=== PATIENT | female | born 1990 | race Caucasian/White ===

== ENCOUNTER 2017-04-11 17:21 | Emergency (ER) | payer OTHER ==
[~2017-04-11] VITALS: Ht 154.9 cm; Wt 81.6 kg
[~2017-04-11 17:21] MED LIST: METO50TA2 PO
--- NOTE | 2017-04-11 17:34 | NUR ---
Arrival: Pt ambulated to ED 4, placed on o2 and bp monitor. Assessment as charted. EDP notified of pt.
[2017-04-11] MEDS ORDERED: NORCO 5 MG PO STA (17:52)
--- NOTE | 2017-04-11 17:58 | ER.PDOC ---
General Chief Complaint: General Complaint Stated Complaint: GENEREAL COMPLAINT Time seen by MD: 17:57 Source: patient Exam Limitations: no limitations History of Present Illness Initial Comments Right lower quadrant pain Timing/Duration: 1-3 hours Severity/Quality: moderate Radiation: no radiation Associated Symptoms: denies symptoms Exacerbated by: nothing Relieved By: nothing Allergies: Coded Allergies: levofloxacin (Verified Allergy, Severe, Hives, 01/03/17) ciprofloxacin (Unverified Allergy, Unknown, 04/10/15) tramadol (Unverified Allergy, Unknown, 04/10/15) prochlorperazine (Verified Adverse Reaction, Intermediate, 01/03/17) SEIZURES aspirin (Verified Adverse Reaction, Unknown, Nausea, 04/11/17) clonazepam (Verified Adverse Reaction, Unknown, 04/11/17) Migraine codeine (Verified Adverse Reaction, Unknown, 01/03/17) doxepin (Verified Adverse Reaction, Unknown, 01/03/17) "ZOMBIED OUT" ketorolac (Verified Adverse Reaction, Unknown, 01/03/17) CAUSES UTI promethazine (Verified Adverse Reaction, Unknown, 04/11/17) Pt states the medication makes her feel like she will have a seizure Vital Signs First Vital Signs Date Time Temp Pulse Resp B/P (MAP) Pulse Ox O2 Delivery O2 Flow Rate FiO2 04/11/17 17:34 98.2 99 18 97 04/11/17 17:37 129/71 (90) Last Vital Signs Date Time Temp Pulse Resp B/P (MAP) Pulse Ox O2 Delivery O2 Flow Rate FiO2 04/11/17 17:37 98.2 99 18 129/71 (90) 97 Past Medical History Surgical History: cholecystectomy LMP (females 10-50): last week Social History Smoking: non-smoker Alcohol Use: none Drug Use: none Constitutional: no symptoms reported Respiratory: no symptoms reported Cardiovascular: no symptoms reported Gastrointestinal: see HPI Genitourinary: no symptoms reported Musculoskeletal: no symptoms reported Skin: no symptoms reported All Other Systems: Reviewed and Negative Physical Exam General Appearance: No Apparent Distress, WD/WN Neck: Non-Tender, Full Range of Motion, Supple, Normal Inspection Respiratory: chest non-tender, lungs clear, normal breath sounds, no respiratory distress, no accessory muscle use Cardiovascular: Normal Peripheral Pulses, Regular Rate, Rhythm, No Edema, No Gallop, No JVD, No Murmur Gastrointestinal: Normal Bowel Sounds, No Organomegaly, No Pulsatile Mass, Tenderness (RLQ) Back: Normal Inspection, No CVA Tenderness, No Vertebral Tenderness Extremities: Normal Range of Motion, Non-Tender, Normal Inspection, No Pedal Edema, No Calf Tenderness, Normal Capillary Refill, Pelvis Stable Neurologic/Psychiatric: sourcing assistant II-XII NML as Tested, No Motor/Sensory Deficits, Alert, Normal Mood/Affect, Oriented x 3 Skin: Normal Color, Warm/Dry EKG/XRAY/CT/US CT Comments: Normal appendix, no kidney stones Course Blood Pressure Systolic: 129 Blood Pressure Diastolic: 71 Blood Pressure Mean: 90 Departure Time of Disposition: 18:56 Disposition: 01 HOME, SELF-CARE Impression: Primary Impression: Nonspecific abdominal pain Condition: Stable Referrals: MOHAMUD ALMODOVAR MD (PCP) PRIMARY CARE PROVIDER Additional Instructions: Ibuprofen F/U with your PCP next week EDWIN PEREZ MD Apr 11, 2017 17:58
[2017-04-11 18:04] LABS: BASOPHIL % 0.4 % (0.0-0.2); EOSINOPHIL # 0.1 10^3/uL (0.0-0.2); EOSINOPHIL % 1.8 % (0.0-5.0); HEMOGLOBIN 9.6 g/dL (12.0-15.0); LYMPHOCYTES # 2.4 10^3/uL (1.0-4.8); LYMPHOCYTES % 30.6 % (24.0-44.0); MEAN CELL HGB 23.5 pg (26-34); MEAN PLATELET VOLUME 8.3 fL (7.8-11.0); MONOCYTES # 0.7 10^3/uL (0.3-0.8); MONOCYTES % 9.3 % (5.0-12.0); NEUTROPHIL # 4.6 10^3/uL (1.8-7.7); NEUTROPHILS % 57.8 % (41.0-85.0); RED CELL DISTRIBUTION WIDTH 14.8 % (11.5-14.5)
[2017-04-11 18:05] LABS: BILIRUBIN,URINE NEGATIVE (NEGATIVE); UROBILINOGEN,URINE NORMAL (NEGATIVE)
[2017-04-11 18:08] LABS: APPEARANCE,URINE CLEAR (CLEAR); UA COLOR YELLOW (YELLOW)
[2017-04-11 18:21] LABS: CALCIUM 8.8 mg/dL (8.4-10.5); CARBON DIOXIDE 25.4 mmol/L (20.0-32)
[2017-04-11] MEDS ORDERED: NORCO 5 MG PO ONE (18:23)
--- NOTE | 2017-04-11 18:36 | DIREP ---
PROCEDURE:CT ABDOMEN/PELVIS W/O CONTRAST COMPARISON:ER On [facility], CT, CT ABD/PELVIS W/ CONTRAST, 09/28/2016, 07:33 PM. INDICATIONS:Right lower quadrant pain TECHNIQUE:Axial images were created through the abdomen and pelvis without intravenous contrast material. No oral contrast was administered. Sagittal and coronal reconstructions were performed from source images. FINDINGS: LUNG BASES:Normal. No visible pulmonary or pleural disease. LIVER:Normal. No significant liver lesions are identified. BILIARY:The gallbladder is surgically absent. There is no biliary ductal dilatation. PANCREAS:Normal. No lesion, fluid collection, ductal dilatation, or atrophy. SPLEEN:Normal. No enlargement or focal lesion. ADRENALS:Normal. No mass or enlargement. URINARY TRACT:Normal. No focal lesions or hydronephrosis. AORTA/VASCULAR:Normal. No aneurysm. RETROPERITONEUM:Normal. No mass or adenopathy. BOWEL/MESENTERY:The appendix is visualized and appears normal. There is no intestinal obstruction, free fluid, free air or mesenteric inflammatory changes. ABDOMINAL WALL:Normal. No mass or hernia. PELVIC ORGANS:Normal. No visible mass. Pelvic organs appropriate for patient age. BONES:Normal for age. No bony lesion or acute fracture. OTHER:Negative. CONCLUSION: 1. Normal appendix. 2. No kidney stones, hydronephrosis. Dictated by: Alfonso Mcnamara M.D. on 04/11/2017 at 06:29 PM
[2017-04-11 19:07] VITALS: BP 132/65
== END 2017-04-11 19:05 | disposition home or self-care (01) ==
LOC: ER 17:21
DX: R10.31 Right lower quadrant pain (principal); Z90.49 Acquired absence of other specified parts of digestive tract; Z88.8 Allergy status to other drugs, medicaments and biological substances; Z88.1 Allergy status to other antibiotic agents; Z88.6 Allergy status to analgesic agent; Z88.5 Allergy status to narcotic agent
CPT/HCPCS: 36415; 74176; 80053; 81002; 81025; 85025; 99285